=== PATIENT | male | born 1940 | race Caucasian/White ===

== ENCOUNTER 2017-03-30 18:36 | Emergency (ER) | payer OTHER ==
[~2017-03-30] VITALS: Ht 172.7 cm; Wt 68.9 kg
[2017-03-30 18:43] VITALS: BP_SYST 190
[2017-03-30] MEDS ORDERED: NACL 0.9% 1,000 ML IV ONE (18:43)
--- NOTE | 2017-03-30 18:44 | NUR ---
Patient to ER bed 7 to gown for evaluation. Side rails up. Report received from AVELINO Pitts.
[2017-03-30] MEDS ORDERED: ASPIRIN 325 MG TABLET PO ONE (18:45)
--- NOTE | 2017-03-30 18:45 | NUR ---
Pt is AAO x 4 and ambulatory. Pt complains of dizziness and light-headedness since 10am this morning. Pt denies N/V or fevr. Pt appears to be anxious. Pt denies chest pain. No other injuries/complaints per patient or noted.
--- NOTE | 2017-03-30 18:50 | NUR ---
ER Dr. Mendoza at bedside examining patient.
--- NOTE | 2017-03-30 19:00 | NUR ---
Patient refuses to have an IV. Dr. Mendoza at bedside speaking with patient regarding having IV in place and explaining why patient needs IV. Pt insists on not having IV placed only blood draw.
--- NOTE | 2017-03-30 19:02 | NUR ---
Lab at bedside drawing blood. Pt tolerated well.
[2017-03-30 19:13] LABS: BASOPHILS % (AUTO) 0.5 % (0.0-2.0); EOSINOPHILS # (AUTO) 0.2 K/uL (0.0-0.4); EOSINOPHILS % (AUTO) 3.5 % (0.0-4.0); HEMATOCRIT 46.6 % (36-54); HEMOGLOBIN 15.3 g/dL (14.0-18.0); LYMPHOCYTES # (AUTO) 2.4 K/uL (1.0-5.5); LYMPHOCYTES % (AUTO) 33.4 % (20.5-51.5); MEAN CORPUSCULAR HEMOGLOBIN 31 pg (27-31); MEAN CORPUSCULAR HGB CONC 33 % (32-36); MEAN CORPUSCULAR VOLUME 93 fL (79.0-98.0); MONOCYTES # (AUTO) 0.5 K/uL (0.0-1.0); MONOCYTES % (AUTO) 7.6 % (1.7-9.3); NEUTROPHILS # (AUTO) 3.9 K/uL (1.8-7.7); PLATELET COUNT (AUTO) 191 K/uL (130-430); RED CELL DISTRIBUTION WIDTH 12.1 % (9.0-15.0)
[2017-03-30 19:24] LABS: ANION GAP 9 (5-15); CALCIUM 9.5 mg/dL (8.4-11.0); CHLORIDE 101 mmol/L (98-107); CREATININE 1.07 mg/dL (0.55-1.30); GLUCOSE 163 mg/dL (70-99); SODIUM SERUM 134 mmol/L (136-145); UREA NITROGEN, BLOOD 24 mg/dL (8-21)
[2017-03-30 19:28] LABS: ALANINE AMINOTRANSFERASE 26 U/L (12-78); ALBUMIN 4.2 g/dL (3.4-4.8); AMYLASE 62 U/L (0-100); ASPARTATE AMINOTRANSFERASE 15 U/L (10-37); INR 1.1 (0.80-1.20); LIPASE 113 U/L (73-393); TOTAL BILIRUBIN 0.6 mg/dL (0.0-1.0)
--- NOTE | 2017-03-30 19:43 | NUR ---
Pt refused medications. Notified Dr. Mendoza.
--- NOTE | 2017-03-30 19:45 | NUR ---
Patient resting in bed, no acute distress noted. Vital signs stable. Will continue to monitor.
[2017-03-30 19:48] LABS: BILIRUBIN,URINE NEGATIVE (NEGATIVE); BLOOD, URINE NEGATIVE (NEGATIVE); CLARITY/URINE CLEAR (CLEAR); COLOR,URINE YELLOW (YELLOW); GLUCOSE,URINE NEGATIVE (NEGATIVE); KETONES,URINE NEGATIVE (NEGATIVE); LEUKOCYTE ESTERASE ,URINE NEGATIVE (NEGATIVE); NITRITE, URINE NEGATIVE (NEGATIVE); PH,URINE 5.5 (5.0-8.0); PROTEIN URINE NEGATIVE (NEGATIVE); UROBILINOGEN,URINE 0.2 (0.2-1.0)
[2017-03-30 20:48] VITALS: BP_SYST 165
--- NOTE | 2017-03-30 20:48 | NUR ---
Patient given written and verbal discharge instructions and verbalizes understanding. ER MD discussed with patient the results and treatment provided. Patient in stable condition. ID arm band removed. Rx of antivert given. Patient educated on pain management and to follow up with PMD. Pain Scale 0/10. Opportunity for questions provided and answered.
== END 2017-03-30 20:48 | disposition home or self-care (01) ==
LOC: SED 18:36
DX: R42 Dizziness and giddiness (principal); I10 Essential (primary) hypertension; Z88.1 Allergy status to other antibiotic agents
CPT/HCPCS: 36415; 71045; 80053; 81003; 82150-TC; 82550-TC; 83690-TC; 84484; 85025; 85610-TC; 85730-TC; 93005; 99285